=== PATIENT | male | born 1930 | race Caucasian/White ===

== ENCOUNTER 2018-01-09 08:12 | Inpatient (IN) | payer OTHER ==
[~2018-01-09] VITALS: Ht 172.7 cm; Wt 89.0 kg
[~2018-01-09 08:12] MED LIST: Aricept PO; COUMADIN4 MG PO; Coumadin,Jantoven PO; EXFORGE 10/31 TABLET PO; FEOSOL325 MG PO; Fosamax PO; Klor-Con M20 PO; LIBRIUM5 MG PO; Lasix PO; SENOKOT S,PE1 TABLET PO; Vicodin,Norco 5/325 PO
[2018-01-09 08:42] LABS: BASOPHIL (%) 0.2 % (0-1); EOSINOPHIL (%) 0.1 % (0-5); HEMATOCRIT 35.9 % (38.0-50.0); HEMOGLOBIN 12.2 G/DL (12.5-16.6); IMMATURE GRANULOCYTE (%) 0.7 % (0.0-0.7); LYMPHOCYTE (%) 11.8 % (15-42); LYMPHOCYTE COUNT 1.3 K/uL (1.0-2.8); MCH 33.8 PG (29.0-34.0); MCV 99.4 FL (86-99); MONOCYTE (%) 12.1 % (3-12); MONOCYTE COUNT 1.4 K/uL (0-0.8); NEUTROPHIL (%) 75.1 % (45-76); NEUTROPHIL COUNT 8.5 K/uL (1.8-6.4); PLATELET COUNT 213 K/uL (156-360); RBC DIS.WIDTH-CV 14.8 % (11.8-14.6); RBC DIS.WIDTH-SD 54.6 % (39-53); RED BLOOD COUNT 3.61 M/uL (4.00-5.50); WHITE BLOOD COUNT 11.3 K/uL (4.1-10.2)
[2018-01-09 08:51] LABS: CHLORIDE 98 mEq/L (99-109); POTASSIUM 5.3 mEq/L (3.7-5.4); SODIUM 136 mEq/L (136-147)
[2018-01-09 08:53] LABS: GLUCOSE 114 mg/dL (70-99)
[2018-01-09 08:57] LABS: GFR ESTIMATE (CALCULATED) > 59 mL/min/ (58.99-99999); UREA NITROGEN (BUN) 46 mg/dL (9-23)
[2018-01-09 08:59] LABS: LIPASE 15 U/L (1.0-51.0)
[2018-01-09] MEDS ORDERED: ASCORBIC ACID500 M3 PO (10:42)
[2018-01-09] MEDS ORDERED: COOL THERAPY118 ML TP (10:43)
[2018-01-09] MEDS ORDERED: BUMEX2 MG PO (10:44)
[2018-01-09] MEDS ORDERED: COLACE100 MG PO (10:45)
[2018-01-09] MEDS ORDERED: COREG3.125 M1 PO (10:45)
[2018-01-09] MEDS ORDERED: COUGH DROPS5 MG MM (10:47)
[2018-01-09] MEDS ORDERED: ARICEPT10 MG PO (10:47)
[2018-01-09] MEDS ORDERED: DULCOLAX10 MG PR (10:48)
[2018-01-09] MEDS ORDERED: FLEET ENEMA-AD118 ML PR (10:49)
[2018-01-09] MEDS ORDERED: FLONASE16 G1 BOTH NARES (10:50)
[2018-01-09] MEDS ORDERED: LORCET 5-325 M1 EACH PO (10:51)
[2018-01-09] MEDS ORDERED: DUONEB 2.5-0.5 M3 ML AEROSOL (10:51)
[2018-01-09] MEDS ORDERED: COZAAR25 MG PO (10:52)
[2018-01-09] MEDS ORDERED: ACIDOPHILUS LA1 EAC1 PO (10:52)
[2018-01-09] MEDS ORDERED: DAILY VALUE1 EACH PO (10:53)
[2018-01-09] MEDS ORDERED: MILK OF MAGN PO (10:53)
[2018-01-09] MEDS ORDERED: DELTASONE20 M1 PO (10:55)
[2018-01-09] MEDS ORDERED: ALDACTONE25 MG PO (10:56)
[2018-01-09] MEDS ORDERED: ROBITUSSIN DM118 ML PO (10:56)
[2018-01-09] MEDS ORDERED: HEARTBURN RELI150 M1 PO (10:56)
[2018-01-09] MEDS ORDERED: SYSTANE BALANCE10 ML BOTH EYES (10:57)
[2018-01-09] MEDS ORDERED: ACETAMINOPHEN325 M1 PO (10:59)
[2018-01-09] MEDS ORDERED: ZOFRAN4 MG PO (11:00)
[2018-01-09] MEDS ORDERED: TOLNAFTATE10 ML TP (11:02)
[2018-01-09 13:06] VITALS: BP 128/60
[2018-01-09 16:06] VITALS: BP 137/71
[2018-01-09 19:31] VITALS: BP 92/51
[2018-01-09 23:35] VITALS: BP 128/67
[2018-01-10 05:13] VITALS: BP 136/69
[2018-01-10 06:17] LABS: HEMATOCRIT 37.1 % (38.0-50.0); HEMOGLOBIN 11.8 G/DL (12.5-16.6); MCH 32.6 PG (29.0-34.0); MCHC 31.8 G/DL (30.0-36.0); MCV 102.5 FL (86-99); PLATELET COUNT 165 K/uL (156-360); RBC DIS.WIDTH-CV 14.9 % (11.8-14.6); RBC DIS.WIDTH-SD 55.8 % (39-53); RED BLOOD COUNT 3.62 M/uL (4.00-5.50); WHITE BLOOD COUNT 8.6 K/uL (4.1-10.2)
[2018-01-10 06:25] LABS: INTER. NORMALIZED RATIO 2.5
[2018-01-10 09:24] VITALS: BP 132/76
[2018-01-10 11:31] VITALS: BP 131/69
[2018-01-10 12:27] LABS: ALBUMIN 3.2 G/DL (3.2-4.8); ALKALINE PHOSPHATASE 79 IU/L (3-129); ALT (GPT) 15 IU/L (3-49); AST (GOT) 20 IU/L (2-34); CHLORIDE 101 MEQ/L (99-109); GFR ESTIMATE (CALCULATED) > 59 mL/min/ (58.99-99999); GLUCOSE 99 mg/dL (70-99); POTASSIUM 4.7 MEQ/L (3.7-5.4); SODIUM 136 MEQ/L (136-147); TOTAL BILIRUBIN 0.7 MG/DL (0.0-1.0); TOTAL PROTEIN 5.6 G/DL (6.4-8.3); UREA NITROGEN (BUN) 44 mg/dL (9-23)
[2018-01-10 16:32] VITALS: BP 103/59
[2018-01-10 17:10] LABS: TROP-I INTERPRETATION NEGATIVE; TROPONIN-I 0.05 ng/mL (0.0-0.30)
[2018-01-10 20:06] VITALS: BP 115/64
[2018-01-10 23:31] VITALS: BP 107/58
[2018-01-11 04:02] VITALS: BP 110/55
[2018-01-11 06:17] LABS: HEMATOCRIT 35.4 % (38.0-50.0); HEMOGLOBIN 11.5 G/DL (12.5-16.6); MCHC 32.5 G/DL (30.0-36.0); MCV 101.4 FL (86-99); PLATELET COUNT 165 K/uL (156-360); RBC DIS.WIDTH-CV 14.8 % (11.8-14.6); RBC DIS.WIDTH-SD 55.1 % (39-53); RED BLOOD COUNT 3.49 M/uL (4.00-5.50); WHITE BLOOD COUNT 7.4 K/uL (4.1-10.2)
[2018-01-11 06:22] LABS: INTER. NORMALIZED RATIO 2.6
[2018-01-11 06:44] LABS: TROP-I INTERPRETATION NEGATIVE; TROPONIN-I 0.05 ng/mL (0.0-0.30)
[2018-01-11 08:27] VITALS: BP 129/64
[2018-01-11 11:47] VITALS: BP 134/62
[2018-01-11 16:09] VITALS: BP 117/69
[2018-01-11 19:56] VITALS: BP 125/62
[2018-01-11 23:38] VITALS: BP 111/58
[2018-01-12 05:19] VITALS: BP 126/62
[2018-01-12 07:28] LABS: INTER. NORMALIZED RATIO 2.1
[2018-01-12 07:40] VITALS: BP 115/57
[2018-01-12 07:47] LABS: CHLORIDE 98 MEQ/L (99-109); GFR ESTIMATE (CALCULATED) > 59 mL/min/ (58.99-99999); GLUCOSE 138 mg/dL (70-99); SODIUM 135 MEQ/L (136-147); UREA NITROGEN (BUN) 36 mg/dL (9-23)
[2018-01-12 15:41] VITALS: BP 129/65
[2018-01-12 19:44] VITALS: BP 120/64
[2018-01-12 23:39] VITALS: BP 115/59
[2018-01-13 04:10] VITALS: BP 104/56
[2018-01-13 07:36] VITALS: BP 117/55
[2018-01-13 13:28] LABS: CHLORIDE 93 MEQ/L (99-109); CREATININE 1.2 MG/DL (0.6-1.3); GFR ESTIMATE (CALCULATED) > 59 mL/min/ (58.99-99999); GLUCOSE 161 mg/dL (70-99); POTASSIUM 5.3 MEQ/L (3.7-5.4); SODIUM 132 MEQ/L (136-147); UREA NITROGEN (BUN) 44 mg/dL (9-23)
[2018-01-13 14:23] VITALS: BP 132/62
[2018-01-13 16:08] VITALS: BP 119/56
[2018-01-13 20:10] VITALS: BP 125/90
[2018-01-14 00:11] VITALS: BP 110/58
[2018-01-14 03:42] VITALS: BP 127/59
[2018-01-14 06:13] LABS: HEMATOCRIT 31.9 % (38.0-50.0); HEMOGLOBIN 10.5 G/DL (12.5-16.6); MCH 32.7 PG (29.0-34.0); MCHC 32.9 G/DL (30.0-36.0); MCV 99.4 FL (86-99); PLATELET COUNT 201 K/uL (156-360); RBC DIS.WIDTH-CV 15.3 % (11.8-14.6); RED BLOOD COUNT 3.21 M/uL (4.00-5.50); WHITE BLOOD COUNT 7.9 K/uL (4.1-10.2)
[2018-01-14 06:16] LABS: INTER. NORMALIZED RATIO 1.7
[2018-01-14 07:27] VITALS: BP 130/70
[2018-01-14 11:03] VITALS: BP 122/59
[2018-01-14 13:47] LABS: CHLORIDE 94 MEQ/L (99-109); CREATININE 1.2 MG/DL (0.6-1.3); GFR ESTIMATE (CALCULATED) > 59 mL/min/ (58.99-99999); GLUCOSE 129 mg/dL (70-99); POTASSIUM 5.4 MEQ/L (3.7-5.4); SODIUM 132 MEQ/L (136-147); UREA NITROGEN (BUN) 47 mg/dL (9-23)
[2018-01-14 20:22] VITALS: BP 116/61
[2018-01-15] VITALS (7 sets, daily range): BP systolic 102–144; BP diastolic 55–86
[2018-01-15 06:29] LABS: INTER. NORMALIZED RATIO 1.7
[2018-01-15 06:49] LABS: CHLORIDE 93 MEQ/L (99-109); CREATININE 1.1 MG/DL (0.6-1.3); GFR ESTIMATE (CALCULATED) > 59 mL/min/ (58.99-99999); GLUCOSE 119 mg/dL (70-99); SODIUM 131 MEQ/L (136-147); UREA NITROGEN (BUN) 40 mg/dL (9-23)
[2018-01-16 04:09] VITALS: BP 135/71
[2018-01-16 07:30] LABS: INTER. NORMALIZED RATIO 1.7
[2018-01-16 07:38] VITALS: BP 150/65
[2018-01-16 07:38] LABS: CHLORIDE 95 MEQ/L (99-109); GFR ESTIMATE (CALCULATED) > 59 mL/min/ (58.99-99999); GLUCOSE 105 mg/dL (70-99); POTASSIUM 5.1 MEQ/L (3.7-5.4); SODIUM 130 MEQ/L (136-147); UREA NITROGEN (BUN) 40 mg/dL (9-23)
[2018-01-16 11:22] VITALS: BP 112/59
[2018-01-16 15:57] VITALS: BP 118/77
[2018-01-16 19:27] VITALS: BP 115/62
[2018-01-16 23:19] VITALS: BP 116/58
[2018-01-17 04:29] VITALS: BP 130/61
[2018-01-17 07:02] LABS: BASOPHIL (%) 0.1 % (0-1); EOSINOPHIL (%) 0.2 % (0-5); HEMATOCRIT 33.5 % (38.0-50.0); HEMOGLOBIN 11.4 G/DL (12.5-16.6); IMMATURE GRANULOCYTE (%) 1.8 % (0.0-0.7); LYMPHOCYTE (%) 9.7 % (15-42); MCV 97.1 FL (86-99); MONOCYTE (%) 7.5 % (3-12); MONOCYTE COUNT 0.8 K/uL (0-0.8); NEUTROPHIL (%) 80.7 % (45-76); NEUTROPHIL COUNT 8.2 K/uL (1.8-6.4); PLATELET COUNT 238 K/uL (156-360); RBC DIS.WIDTH-CV 15.6 % (11.8-14.6); RBC DIS.WIDTH-SD 54.3 % (39-53); RED BLOOD COUNT 3.45 M/uL (4.00-5.50); WHITE BLOOD COUNT 10.1 K/uL (4.1-10.2)
[2018-01-17 07:07] LABS: INTER. NORMALIZED RATIO 1.4
[2018-01-17 07:29] LABS: CHLORIDE 96 MEQ/L (99-109); CREATININE 1.1 MG/DL (0.6-1.3); GFR ESTIMATE (CALCULATED) > 59 mL/min/ (58.99-99999); GLUCOSE 119 mg/dL (70-99); POTASSIUM 5.2 MEQ/L (3.7-5.4); SODIUM 131 MEQ/L (136-147); UREA NITROGEN (BUN) 44 mg/dL (9-23)
[2018-01-17 07:53] VITALS: BP 122/58
[2018-01-17 15:37] VITALS: BP 110/55
[2018-01-17 20:10] VITALS: BP 127/59
[2018-01-18 00:16] VITALS: BP 120/68
[2018-01-18 03:44] VITALS: BP 124/79
[2018-01-18 05:40] LABS: INTER. NORMALIZED RATIO 1.4
[2018-01-18 07:54] VITALS: BP 130/60
[2018-01-18 10:44] VITALS: BP 105/54
[2018-01-18 15:49] VITALS: BP 134/64
[2018-01-18 23:32] VITALS: BP 106/55
[2018-01-19 03:31] VITALS: BP 121/85
[2018-01-19 06:21] LABS: HEMOGLOBIN 11.6 G/DL (12.5-16.6); MCH 32.3 PG (29.0-34.0); MCHC 33.1 G/DL (30.0-36.0); MCV 97.5 FL (86-99); PLATELET COUNT 234 K/uL (156-360); RBC DIS.WIDTH-CV 15.6 % (11.8-14.6); RBC DIS.WIDTH-SD 55.1 % (39-53); RED BLOOD COUNT 3.59 M/uL (4.00-5.50); WHITE BLOOD COUNT 9.1 K/uL (4.1-10.2)
[2018-01-19 06:47] LABS: INTER. NORMALIZED RATIO 1.3
[2018-01-19 07:40] VITALS: BP 138/78
[2018-01-19 07:46] VITALS: BP 149/77
[2018-01-19 11:21] VITALS: BP 132/62
[2018-01-19 16:07] VITALS: BP 108/57
[2018-01-19 23:17] VITALS: BP 122/56
[2018-01-20 03:27] VITALS: BP 118/60
[2018-01-20 05:35] LABS: INTER. NORMALIZED RATIO 1.3
[2018-01-20 06:15] LABS: CHLORIDE 98 MEQ/L (99-109); CREATININE 1.2 MG/DL (0.6-1.3); GFR ESTIMATE (CALCULATED) > 59 mL/min/ (58.99-99999); GLUCOSE 148 mg/dL (70-99); POTASSIUM 4.5 MEQ/L (3.7-5.4); SODIUM 133 MEQ/L (136-147); UREA NITROGEN (BUN) 44 mg/dL (9-23)
[2018-01-20 07:51] VITALS: BP 145/78
[2018-01-20 11:25] VITALS: BP 136/62
[2018-01-20 16:15] VITALS: BP 111/55
[2018-01-20 19:53] VITALS: BP 174/80
[2018-01-20 23:34] VITALS: BP 139/63
[2018-01-21 04:00] VITALS: BP 137/65
[2018-01-21 05:49] LABS: HEMATOCRIT 35.2 % (38.0-50.0); HEMOGLOBIN 11.7 G/DL (12.5-16.6); MCH 33.1 PG (29.0-34.0); MCHC 33.2 G/DL (30.0-36.0); MCV 99.7 FL (86-99); PLATELET COUNT 193 K/uL (156-360); RBC DIS.WIDTH-CV 16.2 % (11.8-14.6); RBC DIS.WIDTH-SD 58.2 % (39-53); RED BLOOD COUNT 3.53 M/uL (4.00-5.50); WHITE BLOOD COUNT 9.5 K/uL (4.1-10.2)
[2018-01-21 05:57] LABS: INTER. NORMALIZED RATIO 1.3
[2018-01-21 08:09] VITALS: BP 131/67
[2018-01-21 11:42] VITALS: BP 111/60
[2018-01-21 15:42] VITALS: BP 123/61
[2018-01-21 19:43] VITALS: BP 134/79
[2018-01-21 23:16] VITALS: BP 118/74
[2018-01-22 04:08] VITALS: BP 122/62
[2018-01-22 06:22] LABS: HEMATOCRIT 35.5 % (38.0-50.0); HEMOGLOBIN 11.9 G/DL (12.5-16.6); MCH 33.1 PG (29.0-34.0); MCHC 33.5 G/DL (30.0-36.0); MCV 98.6 FL (86-99); PLATELET COUNT 199 K/uL (156-360); RBC DIS.WIDTH-CV 15.9 % (11.8-14.6); RBC DIS.WIDTH-SD 57.2 % (39-53); WHITE BLOOD COUNT 9.3 K/uL (4.1-10.2)
[2018-01-22 06:27] LABS: INTER. NORMALIZED RATIO 1.2
[2018-01-22 06:55] LABS: ALBUMIN 3.2 G/DL (3.2-4.8); ALKALINE PHOSPHATASE 49 IU/L (3-129); ALT (GPT) 22 IU/L (3-49); AST (GOT) 17 IU/L (2-34); CHLORIDE 97 MEQ/L (99-109); GFR ESTIMATE (CALCULATED) > 59 mL/min/ (58.99-99999); GLUCOSE 124 mg/dL (70-99); POTASSIUM 4.9 MEQ/L (3.7-5.4); SODIUM 133 MEQ/L (136-147); TOTAL BILIRUBIN 1.2 MG/DL (0.0-1.0); TOTAL PROTEIN 5.1 G/DL (6.4-8.3); UREA NITROGEN (BUN) 40 mg/dL (9-23)
[2018-01-22 08:00] VITALS: BP 149/72
[2018-01-22 12:32] VITALS: BP 139/63
[2018-01-22 16:12] VITALS: BP 135/63
[2018-01-22 19:36] VITALS: BP 123/76
[2018-01-22 23:17] VITALS: BP 124/74
[2018-01-23 03:30] VITALS: BP 124/72
[2018-01-23 06:28] LABS: INTER. NORMALIZED RATIO 1.3
[2018-01-23 07:27] VITALS: BP 119/66
[2018-01-23 12:02] VITALS: BP 130/80
[2018-01-23 15:06] VITALS: BP 111/51
[2018-01-23 19:43] VITALS: BP 130/58
[2018-01-24] VITALS (7 sets, daily range): BP systolic 111–159; BP diastolic 55–72
[2018-01-24 06:30] LABS: HEMATOCRIT 35.4 % (38.0-50.0); HEMOGLOBIN 11.9 G/DL (12.5-16.6); MCH 33.1 PG (29.0-34.0); MCHC 33.6 G/DL (30.0-36.0); MCV 98.3 FL (86-99); PLATELET COUNT 185 K/uL (156-360); RBC DIS.WIDTH-CV 16.1 % (11.8-14.6); RBC DIS.WIDTH-SD 57.1 % (39-53); WHITE BLOOD COUNT 11.5 K/uL (4.1-10.2)
[2018-01-24 06:54] LABS: GLUCOSE 113 mg/dL (70-99); UREA NITROGEN (BUN) 43 mg/dL (9-23)
[2018-01-24 06:55] LABS: CHLORIDE 97 MEQ/L (99-109); CREATININE 0.9 MG/DL (0.6-1.3); GFR ESTIMATE (CALCULATED) > 59 mL/min/ (58.99-99999); POTASSIUM 4.8 MEQ/L (3.7-5.4); SODIUM 130 MEQ/L (136-147)
[2018-01-24 06:56] LABS: INTER. NORMALIZED RATIO 1.2
[2018-01-24 07:12] LABS: ABS NEUTROPHIL COUNT 9.9; ANISOCYTOSIS 2+; BURR CELLS 1+; EOSINOPHIL ABS CT 0.1; EOSINOPHILS 0.9 % (0-5.0); LYMPHOCYTES 11.3 % (15.0-45.0); MACROCYTES 2+; MONOCYTES 1.7 % (0-9.0); OVALOCYTES 1+; PLAT.SUFFICIENCY ADEQUATE; POIKILOCYTOSIS 1+; SEG.NEUTROPHILS 86.1 % (46.0-76.0); SMUDGE CELLS 1.7
[2018-01-25 04:33] VITALS: BP 131/69
[2018-01-25 06:21] LABS: HEMATOCRIT 37.2 % (38.0-50.0); HEMOGLOBIN 12.2 G/DL (12.5-16.6); MCH 32.5 PG (29.0-34.0); MCHC 32.8 G/DL (30.0-36.0); MCV 99.2 FL (86-99); PLATELET COUNT 181 K/uL (156-360); RBC DIS.WIDTH-CV 16.4 % (11.8-14.6); RBC DIS.WIDTH-SD 59.5 % (39-53); RED BLOOD COUNT 3.75 M/uL (4.00-5.50); WHITE BLOOD COUNT 12.6 K/uL (4.1-10.2)
[2018-01-25 06:25] LABS: INTER. NORMALIZED RATIO 1.2
[2018-01-25 06:53] LABS: ALBUMIN 3.1 G/DL (3.2-4.8); ALKALINE PHOSPHATASE 48 IU/L (3-129); ALT (GPT) 20 IU/L (3-49); AST (GOT) 15 IU/L (2-34); CHLORIDE 95 MEQ/L (99-109); GFR ESTIMATE (CALCULATED) > 59 mL/min/ (58.99-99999); GLUCOSE 109 mg/dL (70-99); POTASSIUM 4.8 MEQ/L (3.7-5.4); SODIUM 133 MEQ/L (136-147); TOTAL BILIRUBIN 1.3 MG/DL (0.0-1.0); TOTAL PROTEIN 4.5 G/DL (6.4-8.3); UREA NITROGEN (BUN) 42 mg/dL (9-23)
[2018-01-25 08:10] VITALS: BP 126/75
[2018-01-25 12:46] VITALS: BP 107/52
[2018-01-25 16:59] VITALS: BP 120/56
[2018-01-25 19:22] VITALS: BP 116/55
[2018-01-25 23:34] VITALS: BP 130/61
[2018-01-26 04:00] VITALS: BP 126/66
[2018-01-26 06:34] LABS: INTER. NORMALIZED RATIO 1.2
[2018-01-26] MEDS ORDERED: PREDNISONE20 MG PO (07:54)
[2018-01-26] MEDS ORDERED: AMITIZA24 MICROGR PO (07:54)
[2018-01-26] MEDS ORDERED: DULERA 100 MCG/13 GM IH (07:54)
[2018-01-26] MEDS ORDERED: DUONEB 2.5-0.5 M3 ML AEROSOL (07:54)
[2018-01-26] MEDS ORDERED: BENZONATATE100 MG PO (07:54)
[2018-01-26] MEDS ORDERED: PANTOPRAZOLE SO40 MG PO (07:54)
[2018-01-26] MEDS ORDERED: SPIRIVA RESPIMAT4 GM IH (07:54)
[2018-01-26] MEDS ORDERED: LEVOFLOXACIN750 MG PO (07:54)
[2018-01-26 07:58] VITALS: BP 136/97
[2018-01-26 11:13] VITALS: BP 132/62
== END 2018-01-26 11:20 | DRG 378 ==
LOC: EME 08:12 → 3EAST 10:45 → EDOF 10:45 → 3EAST 10:45 → ENRESERV 10:56 → 3EAST 12:43
PROVIDERS: Emergency Medicine; Family Medicine; Internal Medicine; Internal Medicine Cardiovascular Disease; Nurse Practitioner Family
PROC: 0DJ08ZZ Inspection of Upper Intestinal Tract, Via Natural or Artificial Opening Endoscopic (ICD-10-PCS; principal; 2018-01-12)
DX: K92.2 Gastrointestinal hemorrhage, unspecified (principal); D68.32 Hemorrhagic disorder due to extrinsic circulating anticoagulants; M79.9 Soft tissue disorder, unspecified; T45.515A Adverse effect of anticoagulants, initial encounter; G47.33 Obstructive sleep apnea (adult) (pediatric); I48.2 Chronic atrial fibrillation; K21.9 Gastro-esophageal reflux disease without esophagitis; F03.90 Unspecified dementia, unspecified severity, without behavioral disturbance, psychotic disturbance, mood disturbance, and anxiety; I11.0 Hypertensive heart disease with heart failure; Z95.0 Presence of cardiac pacemaker; I27.81 Cor pulmonale (chronic); Z79.01 Long term (current) use of anticoagulants; I50.22 Chronic systolic (congestive) heart failure; I47.2 Ventricular tachycardia; I27.21 Secondary pulmonary arterial hypertension; Z87.891 Personal history of nicotine dependence; Z85.46 Personal history of malignant neoplasm of prostate; I08.3 Combined rheumatic disorders of mitral, aortic and tricuspid valves; E66.9 Obesity, unspecified; Z68.30 Body mass index [BMI] 30.0-30.9, adult; J20.9 Acute bronchitis, unspecified; J44.0 Chronic obstructive pulmonary disease with (acute) lower respiratory infection; R09.02 Hypoxemia; E87.1 Hypo-osmolality and hyponatremia; N50.89 Other specified disorders of the male genital organs; Z86.73 Personal history of transient ischemic attack (TIA), and cerebral infarction without residual deficits; K22.10 Ulcer of esophagus without bleeding; K44.9 Diaphragmatic hernia without obstruction or gangrene
CPT/HCPCS: 71045; 71046; 71275; 74018; 76705; 80048; 80053; 83605; 83690; 84484; 85025; 85027; 85610; 85730; 86850; 86900; 86901; 87070; 87205; 93005; 93306; 93970; 94010; 94640; 94640 76; 94667; 94668; 94760; 94799; 97530 GO; 97530 GP; 99202; 99281; 99285; C1755; C9113; G0378; J0696; J1940; J2405; J2543; J2920; J2930; J3430; J7050; J7512